=== PATIENT | female | born 1955 | race Caucasian/White ===

== ENCOUNTER 2017-01-29 12:54 | Emergency (ER) | payer BC ==
--- NOTE | 2017-02-09 16:41 | ER ---
ADMIT: 01/29/2017 RM/LOC: ER [facility] MR#: [id number] [facility] [id number] DIAMOND CÁRDENAS [address] [place] [address] CELL Emergency Room Report SEX: F AGE: 61 : 1955 DATE: 01/29/2017 This 61-year-old was under her desk, apparently attempted to stand up, struck her head on the bottom of the desk and developed intermittent headache since then. See T-sheet for history and physical. CT of the head is negative. The patient is diagnosed with headache. Encouraged to follow up as needed. Montana Espinoza MD/ tita JOB #: [id number] CC: Shakir Spann MD, Attending Physician
== END 2017-01-29 14:20 | disposition home or self-care (01) ==
LOC: ER 12:54
DX: R51 Headache (principal); J45.909 Unspecified asthma, uncomplicated; Z98.890 Other specified postprocedural states; Z79.899 Other long term (current) drug therapy; Z88.1 Allergy status to other antibiotic agents; Z88.8 Allergy status to other drugs, medicaments and biological substances; Z91.018 Allergy to other foods; W22.8XXA Striking against or struck by other objects, initial encounter; Y92.69 Other specified industrial and construction area as the place of occurrence of the external cause